=== PATIENT | female | born 1990 | race American Indian/Alaskan Native ===

== ENCOUNTER 2016-05-02 22:12 | Emergency (ER) | payer OTHER ==
[2016-05-03] MEDS ORDERED: MOTRIN PO ONE (01:48)
[2016-05-03] MEDS ORDERED: NACL 0.9% IR ONE (05:25)
[2016-05-03] MEDS ORDERED: MARCAINE 0.5% INFILTRATI ONE (05:25)
--- NOTE | 2016-05-03 05:25 | Emergency Department Report ---
ED Female HPI - General Chief complaint: Urogenital-Female Stated complaint: BOIL Time Seen by Provider: 05/03/16 04:39 Source: patient, family Mode of arrival: Ambulatory Limitations: No Limitations - History of Present Illness Initial comments: Patient here reports that she has a bruise to her right groin which is actually her right labia she says it's been there for 3 days. She denies any fever or chills. She says she's had previous probe for on her buttocks. She said the pain is 10 out of 10 and throbbing. Denies any vaginal bleeding or discharge. Denies any nausea vomiting. MD Complaint: other (abscess to labia) Onset/Timin -: days(s) Location: labia Radiation: non-radiating Severity: severe Severity scale (0 -10): 10 Quality: aching (throbbing) Consistency: constant Improves with: none Worsens with: movement Are you Now?: No Associated Symptoms: denies: vaginal discharge, vaginal bleeding, abdominal pain , nausea/vomiting, fever/chills, headaches, loss of appetite, dysuria, hematuria , rash, seizure, shortness of breath, syncope, weakness - Related Data Sexually active: Yes Previous Rx's Medication Instructions Recorded Last Taken Type Acetaminophen/Codeine [Tylenol #3] 1 tab PO Q6H PRN #10 tab 05/08/14 Unknown Rx Cephalexin [Keflex] 500 mg PO BID #14 capsule 05/08/14 Unknown Rx Promethazine [Phenergan] 25 mg PO Q6H PRN #7 tablet 05/08/14 Unknown Rx HYDROcodone/APAP 5-325 [Cross 1 each PO Q6HR PRN #12 tablet 05/03/16 Unknown Rx 5/325] Ibuprofen [Motrin] 600 mg PO Q8H PRN #15 tablet 05/03/16 Unknown Rx Sulfamethoxazole/Trimethoprim 1 each PO BID #20 tablet 05/03/16 Unknown Rx [Bactrim DS TAB] Allergies Allergy/AdvReac Type Severity Reaction Status Date / Time iodine Allergy Swelling Verified 05/08/14 19:21 ED Review of Systems ROS: Stated complaint: BOIL Other details as noted in HPI Comment: All other systems reviewed and negative Constitutional: denies: chills, fever Respiratory: no symptoms reported Cardiovascular: denies: chest pain, palpitations, edema, syncope Gastrointestinal: denies: abdominal pain, nausea, vomiting Musculoskeletal: denies: back pain, arthralgia Skin: denies: rash ED Past Medical Hx - Past Medical History Previous Medical History?: Yes Hx Asthma: Yes - Surgical History Past Surgical History?: No - Family History Family history: no significant - Social History Smoking Status: Never Smoker Substance Use Type: Marijuana - Medications Home Medications: Home Medications Medication Instructions Recorded Confirmed Last Taken Type Acetaminophen/Codeine [Tylenol #3] 1 tab PO Q6H PRN #10 tab 05/08/14 Unknown Rx Cephalexin [Keflex] 500 mg PO BID #14 capsule 05/08/14 Unknown Rx Promethazine [Phenergan] 25 mg PO Q6H PRN #7 tablet 05/08/14 Unknown Rx HYDROcodone/APAP 5-325 [Cross 1 each PO Q6HR PRN #12 tablet 05/03/16 Unknown Rx 5/325] Ibuprofen [Motrin] 600 mg PO Q8H PRN #15 tablet 05/03/16 Unknown Rx Sulfamethoxazole/Trimethoprim 1 each PO BID #20 tablet 05/03/16 Unknown Rx [Bactrim DS TAB] ED Physical Exam - General Limitations: No Limitations General appearance: alert, in no apparent distress - Head Head exam: Present: atraumatic, normocephalic, normal inspection - ENT ENT exam: Present: normal exam, normal orophraynx, mucous membranes moist, TM's normal bilaterally, normal external ear exam - Neck Neck exam: Present: normal inspection, full ROM. Absent: tenderness, meningismus, lymphadenopathy - Respiratory Respiratory exam: Present: normal lung sounds bilaterally. Absent: respiratory distress, chest wall tenderness - Cardiovascular Cardiovascular Exam: Present: regular rate, normal rhythm, normal heart sounds - GI/Abdominal GI/Abdominal exam: Present: soft, normal bowel sounds. Absent: distended, tenderness, guarding, rebound, rigid - Rectal Rectal exam: Present: normal inspection - External exam: Present: erythema (labia majora), swelling (labia majora), other (abscess to labia majora. Ended up palpate). Absent: lesions, lacerations, ecchymosis, bleeding - Expanded Exam Expanded Female exam: Present: vulvar erythema, vulvar tenderness. Absent: tissue present in vagina, herpetic lesions, foreign body - Extremities Exam Extremities exam: Present: normal inspection, full ROM, normal capillary refill. Absent: tenderness, pedal edema, joint swelling, calf tenderness - Neurological Exam Neurological exam: Present: alert, oriented X3, normal gait, reflexes normal. Absent: motor sensory deficit - Psychiatric Psychiatric exam: Present: normal affect, normal mood - Skin Skin exam: Present: warm, dry, other (abscess the labia majora) - Expanded Skin Exam Expanded Type of lesion: Present: abscess (right labia majora) Distribution of rash: genitals Description of rash: Present: size (4 cm x 2 cm), tenderness, erythematous ( labia majora), swelling (labia majora), fluctuant, indurated ED Course Vital Signs 05/03/16 01:41 Temperature 98.1 F Pulse Rate 73 Respiratory 18 Rate Blood Pressure 132/93 Blood Pressure 132/93 [Left] O2 Sat by Pulse 100 Oximetry - Reevaluation(s) Reevaluation #1: 05/03/16 07:13 She received Rocephin 1 g IM and Toradol 60 mg IM prior to discharge. - I & D Right Vagina Type of Procedure: Complex Site: right labia majora Blade Size: 0.5% Marcaine used to numb the area after cleaning with normal saline. I & D Procedure: sterile drapes applied, sterile dressing applied, gauze wick placed Progress: . Cleansed with normal saline. Patient is allergic to Betadine. tolerated procedure well ED Medical Decision Making - Medical Decision Making ED course: Patient with left fifth labia majora. See procedure note for I&D. Patient instructed to follow-up in 4-5 days to have packing removed she says she has a appointment with her MEDICAL OFFICE RECEPTIONIST ASSISTANT on Wednesday said told her she can follow up with MEDICAL OFFICE RECEPTIONIST ASSISTANT also. Given Rocephin 1 g IM without any adverse reaction and Toradol 60 mg IM for pain. discharged home with prescription for Bactrim and Cross. Critical care attestation.: If time is entered above; I have spent that time in minutes in the direct care of this critically ill patient, excluding procedure time. ED Disposition Clinical Impression: Abscess of labia majora, Cellulitis of labia majora, Encounter for incision and drainage procedure Disposition: DISCHARGED TO HOME OR SELFCARE Is pt being admited?: No Does the pt Need Aspirin: No Condition: Stable Instructions: Abscess Incision and Drainage (ED), Cellulitis (ED) Additional Instructions: Please return to have packing removed in 4-5 days. You have an appointment with shipwright in 5 days she can also see her to remove packing. Please take antibiotic as prescribed. Cross can cause drowsiness. Please do not drive or operate heavy machinery while taking Cross. Sitz baths 3-4 times a day. Please do not remove packing until seen by the MEDICAL OFFICE RECEPTIONIST ASSISTANT ON the emergency room. Please keep affected area clean and dry. Prescriptions: HYDROcodone/APAP 5-325 [Cross 5/325] 1 each PO Q6HR PRN #12 tablet PRN Reason: Pain Ibuprofen [Motrin] 600 mg PO Q8H PRN #15 tablet PRN Reason: Pain Sulfamethoxazole/Trimethoprim [Bactrim DS TAB] 1 each PO BID #20 tablet Referrals: Your, MEDICAL OFFICE RECEPTIONIST ASSISTANT [Other] - 05/08/16 Forms: Work/School Release Form(ED)
[2016-05-03] MEDS ORDERED: ROCEPHIN IM STA (07:07)
[2016-05-03] MEDS ORDERED: XYLOCAINE 1% MPF 5 mL INFILTRATI ONE (07:07)
[2016-05-03 08:14] VITALS: BP 128/88
== END 2016-05-03 08:14 | disposition home or self-care (01) ==
LOC: ED 22:12
DX: N76.4 Abscess of vulva (principal); N76.2 Acute vulvitis; J45.909 Unspecified asthma, uncomplicated; F12.10 Cannabis abuse, uncomplicated
CPT/HCPCS: 56405; 96372; 99283; J0696

== ENCOUNTER 2018-03-14 09:12 | Emergency (ER) | payer OTHER ==
[2018-03-14 11:42] LABS: HCG Qualitative,Urine Negative (Negative)
[2018-03-14 11:44] LABS: Mucus,Urine FEW /HPF
[2018-03-14 11:54] LABS: Bilirubin,Urine NEG (Negative); Blood,Urine SM (Negative); Color,Urine Yellow (Yellow); Protein,Urine <15 mg/dL mg/dL (Negative); Urobilinogen,Urine < 2.0 mg/dL (<2.0)
[2018-03-14] MEDS ORDERED: ZOFRAN IM ONE (11:55)
[2018-03-14] MEDS ORDERED: MORPHINE IM ONE (11:55)
--- NOTE | 2018-03-14 12:34 | Emergency Department Report ---
ED General Adult HPI - General Chief complaint: Abdominal Pain Stated complaint: BACK/SIDE PAIN Time Seen by Provider: 03/14/18 11:43 Source: patient Mode of arrival: Ambulatory Limitations: No Limitations - History of Present Illness Initial comments: She presents to emergency department today complaining of left flank pain that started this morning upon awakening. Patient describes the pain as sharp in nature. Patient has a history of kidney stones and this feels quite similar to stones in the past. Patient has chest pain, shortness breath, headache. -: Sudden Location: abdomen Radiation: other (groin) Severity scale (0 -10): 8 Quality: sharp Consistency: constant Improves with: none Worsens with: none Associated Symptoms: denies other symptoms Treatments Prior to Arrival: none - Related Data Previous Rx's Medication Instructions Recorded Last Taken Type Acetaminophen/Codeine [Tylenol #3] 1 tab PO Q6H PRN #10 tab 05/08/14 Unknown Rx Promethazine [Phenergan] 25 mg PO Q6H PRN #7 tablet 05/08/14 Unknown Rx cephALEXin [Keflex] 500 mg PO BID #14 capsule 05/08/14 Unknown Rx HYDROcodone/APAP 5-325 [[place] 1 each PO Q6HR PRN #12 tablet 05/03/16 Unknown Rx 5/325] Ibuprofen [Motrin] 600 mg PO Q8H PRN #15 tablet 05/03/16 Unknown Rx Sulfamethoxazole/Trimethoprim 1 each PO BID #20 tablet 05/03/16 Unknown Rx [Bactrim DS TAB] HYDROcodone/ACETAMINOPHEN [[place] 1 each PO Q6HR PRN #12 tablet 01/14/18 Unknown Rx 5-325 Tablet] HYDROcodone/ACETAMINOPHEN [[place] 1 each PO Q4HR PRN #12 tablet 03/14/18 Unknown Rx 5-325 Tablet] levoFLOXacin [Levaquin] 750 mg PO QDAY #5 tablet 03/14/18 Unknown Rx Allergies Allergy/AdvReac Type Severity Reaction Status Date / Time iodine Allergy Swelling Verified 03/14/18 09:53 ED Review of Systems ROS: Stated complaint: BACK/SIDE PAIN Other details as noted in HPI Comment: All other systems reviewed and negative Constitutional: denies: chills, fever Eyes: denies: eye pain, eye discharge, vision change ENT: denies: ear pain, throat pain Respiratory: denies: cough, shortness of breath, wheezing Cardiovascular: denies: chest pain, palpitations Endocrine: no symptoms reported Gastrointestinal: abdominal pain. denies: nausea, diarrhea Genitourinary: denies: urgency, dysuria, discharge Musculoskeletal: denies: back pain, joint swelling, arthralgia Skin: denies: rash, lesions Neurological: denies: headache, weakness, paresthesias Psychiatric: denies: anxiety, depression Hematological/Lymphatic: denies: easy bleeding, easy bruising ED Past Medical Hx - Past Medical History Previous Medical History?: Yes Hx Kidney Stones: Yes Hx Asthma: Yes - Surgical History Past Surgical History?: No - Social History Smoking Status: Never Smoker Substance Use Type: Alcohol, Marijuana - Medications Home Medications: Home Medications Medication Instructions Recorded Confirmed Last Taken Type Acetaminophen/Codeine [Tylenol #3] 1 tab PO Q6H PRN #10 tab 05/08/14 Unknown Rx Promethazine [Phenergan] 25 mg PO Q6H PRN #7 tablet 05/08/14 Unknown Rx cephALEXin [Keflex] 500 mg PO BID #14 capsule 05/08/14 Unknown Rx HYDROcodone/APAP 5-325 [[place] 1 each PO Q6HR PRN #12 tablet 05/03/16 Unknown Rx 5/325] Ibuprofen [Motrin] 600 mg PO Q8H PRN #15 tablet 05/03/16 Unknown Rx Sulfamethoxazole/Trimethoprim 1 each PO BID #20 tablet 05/03/16 Unknown Rx [Bactrim DS TAB] HYDROcodone/ACETAMINOPHEN [[place] 1 each PO Q6HR PRN #12 tablet 01/14/18 Unknown Rx 5-325 Tablet] HYDROcodone/ACETAMINOPHEN [[place] 1 each PO Q4HR PRN #12 tablet 03/14/18 Unknown Rx 5-325 Tablet] levoFLOXacin [Levaquin] 750 mg PO QDAY #5 tablet 03/14/18 Unknown Rx ED Physical Exam - General Limitations: No Limitations General appearance: alert, in no apparent distress - Head Head exam: Present: atraumatic, normocephalic - Eye Eye exam: Present: normal appearance, PERRL, EOMI - ENT ENT exam: Present: mucous membranes moist - Neck Neck exam: Present: normal inspection - Respiratory Respiratory exam: Present: normal lung sounds bilaterally. Absent: respiratory distress, wheezes, rales, rhonchi - Cardiovascular Cardiovascular Exam: Present: regular rate, normal rhythm. Absent: systolic murmur, diastolic murmur, rubs, gallop - GI/Abdominal GI/Abdominal exam: Present: soft, tenderness (left CVA TTP), normal bowel sounds. Absent: distended - Extremities Exam Extremities exam: Present: normal inspection - Back Exam Back exam: Present: normal inspection - Neurological Exam Neurological exam: Present: alert, oriented X3 - Psychiatric Psychiatric exam: Present: normal affect, normal mood - Skin Skin exam: Present: warm, dry, intact, normal color. Absent: rash ED Course Vital Signs 03/14/18 03/14/18 09:53 12:09 Temperature 97.7 F Pulse Rate 63 Respiratory 16 18 Rate Blood Pressure 115/78 O2 Sat by Pulse 99 Oximetry ED Medical Decision Making - Lab Data Result diagrams: 03/14/18 13:20 03/14/18 13:20 Lab Results 03/14/18 03/14/18 03/14/18 Range/Units 11:17 13:20 13:20 WBC 7.2 (4.5-11.0) K/mm3 RBC 4.25 (3.65-5.03) M/mm3 Hgb 13.9 (10.1-14.3) gm/dl Hct 40.8 (30.3-42.9) % MCV 96 (79-97) fl MCH 33 H (28-32) pg MCHC 34 (30-34) % RDW 13.1 L (13.2-15.2) % Plt Count 233 (140-440) K/mm3 Lymph % (Auto) 32.5 (13.4-35.0) % Dent % (Auto) 6.6 (0.0-7.3) % Eos % (Auto) 2.4 (0.0-4.3) % Baso % (Auto) 0.5 (0.0-1.8) % Lymph # 2.3 (1.2-5.4) K/mm3 Dent # 0.5 (0.0-0.8) K/mm3 Eos # 0.2 (0.0-0.4) K/mm3 Baso # 0.0 (0.0-0.1) K/mm3 Seg Neutrophils % 58.0 (40.0-70.0) % Seg Neutrophils # 4.2 (1.8-7.7) K/mm3 Sodium 140 (137-145) mmol/L Potassium 4.1 (3.6-5.0) mmol/L Chloride 107.6 H (98-107) mmol/L Carbon Dioxide 22 (22-30) mmol/L Anion Gap 15 mmol/L BUN 9 (7-17) mg/dL Creatinine 0.7 (0.7-1.2) mg/dL Estimated GFR > 60 ml/min BUN/Creatinine Ratio 13 % Glucose 78 (65-100) mg/dL Calcium 8.5 (8.4-10.2) mg/dL Total Bilirubin 0.20 (0.1-1.2) mg/dL AST 16 (5-40) units/L ALT 12 (7-56) units/L Alkaline Phosphatase 46 (35-129) units/L Total Protein 6.6 (6.3-8.2) g/dL Albumin 3.6 L (3.9-5) g/dL Albumin/Globulin Ratio 1.2 % Urine Color Yellow (Yellow) Urine Turbidity Slightly-cloudy (Clear) Urine pH 6.0 (5.0-7.0) Ur Specific [place] 1.015 (1.003-1.030) Urine Protein <15 mg/dl (Negative) mg/dL Urine Glucose (UA) Neg (Negative) mg/dL Urine Ketones Neg (Negative) mg/dL Urine Blood Sm (Negative) Urine Nitrite Neg (Negative) Ur Reducing Substances Not Reportable Urine Bilirubin Neg (Negative) Urine Ictotest Not Reportable Urine Urobilinogen < 2.0 (<2.0) mg/dL Ur Leukocyte Esterase Lg (Negative) Urine WBC (Auto) 20.0 H (0.0-6.0) /HPF Urine RBC (Auto) 4.0 (0.0-6.0) /HPF U Epithel Cells (Auto) 17.0 H (0-13.0) /HPF Urine Mucus Few /HPF Urine HCG, Qual Negative (Negative) - Radiology Data Radiology results: report reviewed - Medical Decision Making Discussed results with the patient Patient denies puncture wound per concern of CT scan Critical care attestation.: If time is entered above; I have spent that time in minutes in the direct care of this critically ill patient, excluding procedure time. ED Disposition Clinical Impression: Flank pain, UTI (urinary tract infection) Disposition: TO HOME OR SELFCARE Is pt being admited?: No Does the pt Need Aspirin: No Condition: Stable Instructions: Flank Pain (ED), Urinary Tract Infection in Women (ED) Additional Instructions: return if worse Prescriptions: HYDROcodone/ACETAMINOPHEN [[place] 5-325 Tablet] 1 each PO Q4HR PRN #12 tablet PRN Reason: pain levoFLOXacin [Levaquin] 750 mg PO QDAY #5 tablet Referrals: COURTNEY PHELAN MD [Primary Care Provider] - 3-5 Days [facility] [Provider Group] - 3-5 Days [facility] [Provider Group] - 3-5 Days Time of Disposition: 15:16
[2018-03-14 13:33] LABS: Basophils % (Auto) 0.5 % (0.0-1.8); Eosinophils # (Auto) 0.2 K/mm3 (0.0-0.4); Eosinophils % (Auto) 2.4 % (0.0-4.3); Hematocrit 40.8 % (30.3-42.9); Hemoglobin 13.9 gm/dl (10.1-14.3); Lymphocytes # (Auto) 2.3 K/mm3 (1.2-5.4); Lymphocytes % (Auto) 32.5 % (13.4-35.0); Mean Corpuscular HGB Conc 34 % (30-34); Mean Corpuscular Volume 96 fl (79-97); Monocytes # (Auto) 0.5 K/mm3 (0.0-0.8); Monocytes % (Auto) 6.6 % (0.0-7.3); Platelet Count 233 K/mm3 (140-440); Red Blood Count 4.25 M/mm3 (3.65-5.03); Red Cell Distribution Width 13.1 % (13.2-15.2)
[2018-03-14 14:50] LABS: Alanine Aminotransferase 12 units/L (7-56); Albumin 3.6 g/dL (3.9-5); BUN/Creatinine Ratio 13; Blood Urea Nitrogen 9 mg/dL (7-17); Calcium 8.5 mg/dL (8.4-10.2); Hemolysis Index 21
--- NOTE | 2018-03-14 15:09 | Cat Scan Report ---
FINAL REPORT EXAM: CT ABDOMEN PELVIS WO CON HISTORY: flnak pain TECHNIQUE: CT of the abdomen and pelvis was performed without intravenous contrast. Reconstructions were included in the coronal and sagittal planes. PRIORS: None. FINDINGS: Lower thorax: The lung bases are clear. The visualized portions of the heart are normal. Liver: The liver is normal in attenuation. No intrahepatic biliary duct dilation. There is a 3 millim eter hyper attenuating focus near the hepatic dome on series 2, image 9. Gallbladder/ biliary system: No cholelithiasis. The common bile duct appears nondilated. Spleen: No splenic lesions are seen. Pancreas: No pancreatic lesions are seen. No pancreatic duct dilation. Kidneys: No renal masses, cysts or hydronephrosis. No renal calculi. No definite ureteral calculi how ever the distal ureters are not well seen. Multiple phleboliths are seen within the pelvis. Adrenal glands: No adrenal masses. Vasculature: The abdominal aorta is nondilated. Lymph nodes: No enlarged lymph nodes are seen in the abdomen or pelvis. Bowel, mesentery, peritoneum: No bowel obstruction. No free fluid or free air. The appendix was not d efinitively seen. No colonic diverticulosis. No bowel wall thickening. Urinary bladder: No filling defects are seen. Pelvis: Normal anatomy is noted. No masses. Abdominal wall: Subcutaneous gas in the right posterior flank soft tissues may be related to a site o f injection. Bones: No acute or chronic osseous finding. IMPRESSION: 1. No renal calculi. No hydronephrosis or hydroureter. Distal ureters are somewhat difficult to visua lize. Cannot separate the pelvic phleboliths with the distal ureters and completely exclude distal ur eteral calculus. 2. Nonspecific tiny hyperattenuating right hepatic lesion. 3. Subcutaneous gas in the right posterior flank soft tissues may be related to a site of injection.
[2018-03-14 17:38] VITALS: BP 128/77
== END 2018-03-14 15:30 | disposition home or self-care (01) ==
LOC: ED 09:12
DX: N39.0 Urinary tract infection, site not specified (principal); J45.909 Unspecified asthma, uncomplicated; F12.90 Cannabis use, unspecified, uncomplicated; Z88.8 Allergy status to other drugs, medicaments and biological substances
CPT/HCPCS: 36415; 74176; 80053; 81001; 81025; 85025; 96372; 99284; J2270; J2405